=== PATIENT | female | born 1990 | race Caucasian/White ===

== ENCOUNTER 2018-11-15 17:04 | Emergency (ER) | payer MEDICAID, OTHER | END 2018-11-15 20:02 | disposition home or self-care (01) ==

== ENCOUNTER → 2019-02-15 | Outpatient (CLI) | payer MEDICAID | LOC: FIMAGING 11:22 ==

== ENCOUNTER → 2019-03-07 | Outpatient (CLI) | payer MEDICAID | LOC: FCPNEURO 07:59 ==